=== PATIENT | female | born 1940 | race Caucasian/White ===

== ENCOUNTER 2021-08-03 15:31 | Emergency (ER) | payer BC, MEDICARE ==
--- NOTE | 2021-08-03 15:58 | NUR ---
PT AND HER DOUGHTER TALKED TO DR HERNÁNDEZ. PT REFUSED EKG AND STATED THAT SHE DOES NOT HAVE C/P OR OTHER AT THIS TIME. PT LEFT WAITING ROOM WITH HER DOUGHTER .
== END 2021-08-03 16:01 | disposition left against medical advice (07) ==
LOC: ER 15:40
DX: R07.9 Chest pain, unspecified (principal); Z53.29 Procedure and treatment not carried out because of patient's decision for other reasons
CPT/HCPCS: 93005; A4663